=== PATIENT | male | born 1980 | race Two or more races ===

== ENCOUNTER 2020-03-06 05:04 | Emergency (ER) | payer OTHER ==
[~2020-03-06] VITALS: Ht 170.2 cm; Wt 87.5 kg
[2020-03-06 07:30] VITALS: BP 157/102
== END 2020-03-06 07:57 | disposition home or self-care (01) ==
LOC: ER 05:04 → EDBD 05:04 → ER 07:57
DX: S63.612A Unspecified sprain of right middle finger, initial encounter (principal); F17.210 Nicotine dependence, cigarettes, uncomplicated; X50.1XXA Overexertion from prolonged static or awkward postures, initial encounter; Y93.89 Activity, other specified; Y92.89 Other specified places as the place of occurrence of the external cause; Y99.8 Other external cause status
CPT/HCPCS: 73130

== ENCOUNTER 2020-04-04 17:04 | Emergency (ER) | payer OTHER, MEDICAID ==
[~2020-04-04] VITALS: Ht 167.6 cm; Wt 92.1 kg
[2020-04-04 18:05] LABS: Basophils # (auto) 0 10 ^3/uL (0-0.2); Basophils % (auto) 0.4 % (0.0-2.0); Eosinophils # (auto) 0 10 ^3/uL (0-0.8); Hematocrit 35.9 % (41.0-53.0); Hemoglobin 12.9 g/dL (13.5-17.5); Lymphocytes % (auto) 23.2 % (10.0-50.0); Mean Corpuscular Hemoglobin 32.1 pg (28.0-32.0); Mean Corpuscular Hgb Conc. 35.9 g/dL (32.0-36.0); Mean Corpuscular Volume 89.2 fL (80.0-100.0); Monocytes # (auto) 0.8 10 ^3/uL (0-1.3); Monocytes % (auto) 9.6 % (0.0-12.0); Neutrophils # (auto) 5.8 10 ^3/uL (1.6-8.6); Neutrophils % (auto) 66.8 % (37.0-80.0); Nucleated Red Blood Cells % 0.1 %; Platelet Count (auto) 148 10^3/uL (140-450); Red Blood Cells 4.03 10^6/uL (4.5-5.90); Red Cell Distribution Width 12.7 % (11.8-14.3); White Blood Cell 8.6 10^3/uL (4.4-10.8)
[2020-04-04 18:22] LABS: Calcium 8.7 mg/dL (8.5-10.1)
[2020-04-04 18:27] LABS: Total Protein 6.9 g/dL (6.4-8.2)
[2020-04-04 18:48] LABS: Urine Bacteria NONE SEEN /hpf (None Seen); Urine Blood Negative /uL (Negative); Urine Mucus MANY (None Seen); Urine Specific Gravity 1.032 (1.001-1.035); Urine WBC 6 /hpf (0 - 3)
[2020-04-04] MEDS ORDERED: POTASSIUM CHL 20 Meq TABLET PO ONE (20:00)
[2020-04-04] MEDS ORDERED: ACETAMINOPHEN 325 MG TAB PO ONE (20:00)
[2020-04-04 21:24] VITALS: BP 108/81
== END 2020-04-04 21:31 | disposition home or self-care (01) ==
LOC: ER 17:04
DX: J20.8 Acute bronchitis due to other specified organisms (principal); E87.6 Hypokalemia; R79.89 Other specified abnormal findings of blood chemistry; F17.210 Nicotine dependence, cigarettes, uncomplicated; Z20.822 Contact with and (suspected) exposure to COVID-19
CPT/HCPCS: 36415; 71045; 80053; 81001; 85025; 87426; 93005; 99285; C9803; U0003

== ENCOUNTER 2020-09-11 08:23 | Emergency (ER) | payer MEDICAID, OTHER ==
[~2020-09-11] VITALS: Ht 170.2 cm; Wt 87.5 kg
[2020-09-11 08:56] LABS: Urine Bacteria FEW /hpf (None Seen); Urine Blood 3+ /uL (Negative); Urine Budding Yeast OCCASIONAL /hpf (None Seen); Urine Specific Gravity 1.017 (1.001-1.035); Urine WBC 134 /hpf (0 - 3); Urine WBC Clumps PRESENT /hpf (None Seen)
[2020-09-11] MEDS ORDERED: SODIUM CHLORIDE 0.9% 1,000 ML IV ONE ×2 (11:15)
[2020-09-11] MEDS ORDERED: cefTRIAXone 1GM/50ML D5W 50 ML IV ONE (11:15)
[2020-09-11] MEDS ORDERED: KETOROLAC TROMETH 30 MG/ML 1ML VIAL IV ONE (11:15)
[2020-09-11] MEDS ORDERED: TAMSULOSIN HYDROCHLORIDE 0.4 MG CAP PO ONE (11:30)
[2020-09-11 11:41] LABS: Albumin 3.4 g/dL (3.4-5.0); Calcium 8.1 mg/dL (8.5-10.1)
[2020-09-11 11:48] LABS: Bilirubin, Total 0.8 mg/dL (0.2-1.0)
[2020-09-11 11:57] LABS: Basophils # (auto) 0.2 10 ^3/uL (0-0.2); Eosinophils % (auto) 0.3 % (0.0-7.0); Monocytes # (auto) 0.9 10 ^3/uL (0-1.3); Nucleated Red Blood Cells % 0.1 %; Red Blood Cells 4.38 10^6/uL (4.5-5.90)
[2020-09-11 11:59] LABS: Eosinophils # (auto) 0.1 10 ^3/uL (0-0.8); Hematocrit 39.7 % (41.0-53.0); Lymphocytes % (auto) 15.8 % (10.0-50.0); Mean Corpuscular Volume 90.6 fL (80.0-100.0); Monocytes % (auto) 4.8 % (0.0-12.0); Neutrophils # (auto) 14.8 10 ^3/uL (1.6-8.6); Neutrophils % (auto) 78.1 % (37.0-80.0); Red Cell Distribution Width 13.3 % (11.8-14.3)
[2020-09-11 12:06] VITALS: BP 113/87
[2020-09-11 12:14] LABS: BUN/Creatinine Ratio 16.7
[2020-09-11 12:16] LABS: Total Protein 7.1 g/dL (6.4-8.2)
[2020-09-11 12:20] LABS: Hemoglobin 14.5 g/dL (13.5-17.5); Mean Corpuscular Hemoglobin 32.2 pg (28.0-32.0); Mean Corpuscular Hgb Conc. 35.1 g/dL (32.0-36.0)
== END 2020-09-11 13:09 | disposition home or self-care (01) ==
LOC: ER 08:23
DX: N20.0 Calculus of kidney (principal); N39.0 Urinary tract infection, site not specified; F17.210 Nicotine dependence, cigarettes, uncomplicated
CPT/HCPCS: 36415; 74176; 80053; 81001; 85025; 96365; 96375; 99284; J0696; J7030